=== PATIENT | male | born 2000 | race Caucasian/White ===

== ENCOUNTER → 2020-07-05 14:18 | Outpatient (CLI) | payer OTHER, SELFPAY | PROVIDERS: PCP Internal Medicine Adolescent Medicine; Visit Provider Internal Medicine Adolescent Medicine | DX: Z03.818 Encounter for observation for suspected exposure to other biological agents ruled out (principal) | CPT/HCPCS: U0003 ==

== ENCOUNTER 2020-08-04 14:23 | Emergency (ER) | payer OTHER, SELFPAY ==
[2020-08-04 14:30] VITALS: BP 130/70; PULSE 90; RESP 14; TEMP 37.3; O2SAT 100; BMI 25.7
--- NOTE | 2020-08-04 14:56 | HMH.EDUTC ---
[facility] [place] Clinical Impression: Exposure to COVID-19 virus Disposition: Home, Self-Care Condition on Discharge: Good Instructions: Preventing the Spread of Coronavirus Discharge Instructions Additional Instructions: Drink plenty of fluids. Take tylenol for pain or fever. Follow up with your regular doctor. GO TO THE ER FOR ANY WORSENING SYMPTOMS Referrals: Will Strong MD [Primary Care Provider] - Time of Disposition: 14:56 Medical Decision Making - Medical Records Medical records reviewed: No: I reviewed the patient's medical records. - Mahin Inquiry Pt receiving controlled substance: No Vital Signs: 08/04/20 14:30 Temperature 99.1 F Temperature Source Oral Pulse Rate [Right Brachial] 90 Respiratory Rate 14 Blood Pressure [Right Arm] 130/70 Blood Pressure Mean [Right Arm] 90 Blood Pressure Source [Right Arm] Automatic Cuff Blood Pressure Position [Right Arm] Sitting 02 Sat by Pulse Oximetry 100 Oxygen Delivery Method Room Air Orders (Tests/Meds): ORDERS Category Date Time Status Covid-19 Nasal PCR ([facility]) Routine Lab 08/04/20 14:40 Received [facility] [place]PI - General Stated complaint: covid test Time Seen by Provider: 08/04/20 14:56 Mode of Arrival: Ambulatory Source of Information: Patient Limitations: No Limitations Description of Symptoms (Recalled from Triage Doc. by RN): COVID TEST D/T EXPOSURE. DENIES SYMPTOMS HEENT Symptoms (Recalled from RN notes): No Resp Symptoms (Recalled from RN notes): No Skin Symptoms (Recalled from RN notes): No MS Symptoms (Recalled from RN notes): No Functional Status (Recalled from RN notes): WNL - History of Present Illness Provider Complaint: He states that his dad tested positive for covid-19 yesterday. He denies any symptoms in himself so far. - Related Data Previous Rx's Medication Instructions Recorded amoxicillin 500 mg capsule 500 mg PO Q12H 10 Days #20 cap 10/16/18 Allergies Allergy/AdvReac Type Severity Reaction Status Date / Time No Known Allergies Allergy Verified 08/04/20 14:50 - Worker's Comp Is this a Worker's Comp case?: No [facility] History - Hepatitis A Screen Drug use history?: No High risk sexual behaviors?: No History of sexually transmitted infection?: No Currently employed?: No Childcare worker?: No Do you have indoor plumbing?: Yes Do you have electricity?: Yes Attestation statement:: This patient has been screened for Hepatitis A risk factors. I have reviewed the patient's past medical history: Yes Laterality Cases: Bilateral: Tonsillectomy Amputation: No Fractures: No - Social History Smoking Status: Never smoker Alcohol Intake: never Substance Use Type: denies use Occupational Status: student Housing: house Household Members: family Family Hx:: No significant family history ROS Obtained: Yes All systems reviewed & no additional complaints - Constitutional Constitutional: Reports system reviewed and no additional complaints, except as docu - Eyes Eyes: Reports system reviewed and no additional complaints, except as docu - ENT Ears, Nose, Mouth, and Throat: Reports system reviewed and no additional complaints, except as docu - Cardiovascular Cardiovascular: Reports system reviewed and no additional complaints, except as docu - Respiratory Respiratory: Reports system reviewed and no additional complaints, except as docu - Gastrointestinal Gastrointestingal: Reports: system reviewed and no additional complaints, except as docu Physical Exam - General General appearance: alert, in no apparent distress - Head Head exam: atraumatic, normocephalic, normal inspection - Eye Eye exam: Present: normal appearance, PERRL, EOMI - ENT ENT exam: Present: normal exam, normal oropharynx, mucous membranes moist, TM's normal bilaterally, normal external ear exam - Neck Neck exam: Present: normal inspection, full ROM, trachea midline. Absent: meningismus, lymphade
[2020-08-04 14:58] VITALS: BP 130/70; PULSE 90; RESP 14; TEMP 37.3; O2SAT 100
--- NOTE | 2020-08-04 19:35 | PC.NURSE ---
PATIENT NOTIFIED OF POSITIVE COVID RESULTS
== END 2020-08-04 15:00 | disposition home or self-care (01) ==
PROVIDERS: Emergency Provider Nurse Practitioner Family; PCP Internal Medicine Adolescent Medicine
DX: Z20.822 Contact with and (suspected) exposure to COVID-19 (principal)
CPT/HCPCS: 99202; G0463; U0003

== ENCOUNTER 2020-09-30 10:04 | Emergency (ER) | payer OTHER, SELFPAY ==
[2020-09-30 10:14] VITALS: RESP 16; TEMP 36.9; O2SAT 97; BMI 24.8
[2020-09-30 10:15] VITALS: BMI 26.2
--- NOTE | 2020-09-30 10:17 | XR_ITS ---
PROCEDURE: XR FOOT RT MIN 3V CLINICAL INDICATION: tripped down stairs COMPARISON: No exams were available for comparison FINDINGS: No fracture or dislocation. No lytic or blastic change. There is normal mineralization. The joint spaces are well-preserved. No significant degenerative/arthritic changes. No erosive changes evident. Other findings:None. IMPRESSION: No acute findings. Dictated by: Denise Garcia 09/30/2020 11:23 Denise Garcia in [place] 09/30/2020 11:23
--- NOTE | 2020-09-30 10:17 | XR_ITS ---
PROCEDURE: XR ANKLE RT MIN 3V CLINICAL INDICATION: tripped down stairs COMPARISON: CR ANKR3 ANKLE-RT-3 VIEWS from 04/09/2014 CR ANKL2 ANKLE-LT-2 VIEWS from 04/09/2014 FINDINGS: No acute fractures or dislocations. Bone density is normal. The ankle mortise is congruent and the lateral clear space is preserved. No significant soft tissue abnormality is noted. IMPRESSION: No acute findings. Dictated by: Denise Garcia 09/30/2020 10:46 Denise Garcia in [facility] 09/30/2020 10:46
--- NOTE | 2020-09-30 10:52 | HMH.EDUTC ---
[facility] [place] Disposition Clinical Impression: Right ankle sprain Qualifiers: Encounter type: initial encounter Involved ligament of ankle: unspecified ligament Qualified Code(s): S93.401A - Sprain of unspecified ligament of right ankle, initial encounter Right foot sprain Qualifiers: Encounter type: initial encounter Qualified Code(s): S93.601A - Unspecified sprain of right foot, initial encounter Disposition: Home, Self-Care Condition on Discharge: Good Instructions: Ankle Sprain, DI for Ankle Sprain Additional Instructions: Rest the extremity, apply ice for 15 minutes as tolerated three or four times per day, Elevate the extremity as tolerated while you are resting. Take ibuprofen for pain. I sent in a prescription to your pharmacy. Follow up with Dr. Garcia (orthopedics). Sometimes there can be fractures that don't show up well on the first set of x-rays. So, you should follow up if you continue to have symptoms. I put in a referral but you need to call his office and schedule an appointment. Follow up with your regular doctor. GO TO THE ER FOR ANY WORSENING SYMPTOMS Prescriptions: Ibuprofen [Ibuprofen 600mg Tablet] 600 mg PO Q6HP PRN #30 tab PRN Reason: Mild Pain Transmission Status: Received by [facility] #[id number] Referrals: Will Strong MD [Primary Care Provider] - Pieter Garcia MD [Staff Physician] - Time of Disposition: 10:54 Medical Decision Making - Medical Records Medical records reviewed: No: I reviewed the patient's medical records. - Mahin Inquiry Pt receiving controlled substance: No Vital Signs: 09/30/20 10:14 09/30/20 11:02 Temperature 98.4 F 97.7 F Temperature Source Oral Oral Pulse Rate 66 Respiratory Rate 16 14 Blood Pressure 135/68 Blood Pressure Source Automatic Cuff 02 Sat by Pulse Oximetry 97 Oxygen Delivery Method Room Air - Radiology Data #1 Image(s): Wrist Image Reviewed: Yes I reviewed the patient's radiology image, Yes I have reviewed radiologist's interpretation Preliminary Findings: No Fracture Seen PROCEDURE: XR FOOT LT MIN 3V CLINICAL INDICATION: PAIN COMPARISON: No exams were available for comparison FINDINGS: No acute fractures or dislocations. Bone density is normal. Incidental note is made of os navicularis. Otherwise the tarsals, metatarsals and phalanges are unremarkable. No significant degenerative changes. No significant soft tissue abnormality is noted. IMPRESSION: No acute abnormality. Dictated by: Denise Garcia 09/30/2020 15:55 Denise Garcia in [facility] 09/30/2020 15:55 #2 Image(s): Foot/Toes Image Reviewed: Yes I reviewed the patient's radiology image, Yes I have reviewed radiologist's interpretation Preliminary Findings: Normal/NAD, No Fracture Seen PROCEDURE: XR FOOT RT MIN 3V CLINICAL INDICATION: tripped down stairs COMPARISON: No exams were available for comparison FINDINGS: No fracture or dislocation. No lytic or blastic change. There is normal mineralization. The joint spaces are well-preserved. No significant degenerative/arthritic changes. No erosive changes evident. Other findings:None. IMPRESSION: No acute findings. Dictated by: Denise Garcia 09/30/2020 11:23 Denise Garcia in [place] 09/30/2020 11:23 [facility] [place] HPI - General Stated complaint: ao 09/29/20 @1700 injury Rt foot Time Seen by Provider: 09/30/20 10:20 Mode of Arrival: Wheelchair Source of Information: Patient Limitations: No Limitations Description of Symptoms (Recalled from Triage Doc. by RN): Fell down the stairs at the gym and c/o pain to right foot/ankle HEENT Symptoms (Recalled from RN notes): No Resp Symptoms (Recalled from RN notes): No Skin Symptoms (Recalled from RN notes): No MS Symptoms (Recalled from RN notes): No Functional Status (Recalled from RN notes): na - History of Present Illness Provider Complaint: He states that he missed the bottom step and fell this mo
[2020-09-30 11:02] VITALS: BP 135/68; PULSE 66; RESP 14; TEMP 36.5
== END 2020-09-30 11:05 | disposition home or self-care (01) ==
PROVIDERS: Emergency Provider Nurse Practitioner Family; PCP Internal Medicine Adolescent Medicine
DX: S93.401A Sprain of unspecified ligament of right ankle, initial encounter (principal); S93.601A Unspecified sprain of right foot, initial encounter; W10.9XXA Fall (on) (from) unspecified stairs and steps, initial encounter; Y92.019 Unspecified place in single-family (private) house as the place of occurrence of the external cause
CPT/HCPCS: 29515; 73610; 73630; 99202; G0463